=== PATIENT | female | born 1990 | race Caucasian/White ===

== ENCOUNTER → 2018-01-20 | Outpatient (CLI) | payer OTHER ==
--- NOTE | 2018-01-20 17:24 | US ---
EXAMINATION TYPE: US thyroid st tissue head/neck DATE OF EXAM: 01/20/2018 COMPARISON: NONE CLINICAL HISTORY: E04.1 Thyroid nodule. Pt states history of thyroid nodule GLAND SIZE: Right Lobe: 5.9 x 1.3 x 1.4 cm Overall Parenchyma: homogenous Left Lobe: 6.0 x 1.3 x 1.8 cm Overall Parenchyma: homogeneous Isthmus Thickness: 0.3 cm NODULES RIGHT: # of nodules measured on right: 1 1. 0.4 X 0.2 x 0.4 cm hypoechoic solid nodule at the mid pole with well-defined margins; This nodul e is wider than tall and shows intranodular vascularity. Prior size: No prior Multiple, (up to 4) sub-centimeter nodules with largest nodule measured LEFT: # of nodules measured on left: 1 1. 0.6 X 0.3 x 0.4 cm hypoechoic solid nodule at the mid pole with well-defined margins; This nodu le is wider than tall and shows intranodular vascularity. Prior size: No prior Bilateral neck scanned, no evidence of lymphadenopathy. Multiple sub-centimeter nodules bilaterally. IMPRESSION: Thyroid gland is fairly normal size. Small hypoechoic oval-shaped nodules bilaterally. No suspicious mass. no dominant mass.
== END ==
LOC: RADUSWWP 16:57
PROVIDERS: ATTEND Family Medicine
DX: E04.1 Nontoxic single thyroid nodule (principal)
CPT/HCPCS: 76536

== ENCOUNTER → 2019-02-02 | Outpatient (CLI) | payer SELFPAY ==
--- NOTE | 2019-02-02 16:21 | US ---
EXAMINATION TYPE: US thyroid st tissue head/neck DATE OF EXAM: 02/02/2019 COMPARISON: Thyroid ultrasound January 20, 2018. CLINICAL HISTORY: E04.2 MULTINODULAR GOITER. Follow up thyroid nodules GLAND SIZE: Right Lobe: 5.4 x 1.5 x 1.5 cm Overall Parenchyma: homogenous Left Lobe: 5.7 x 1.5 x 1.7 cm Overall Parenchyma: homogeneous Isthmus Thickness: 0.4 cm NODULES RIGHT: # of nodules measured on right: 1 1. 0.5 X 0.3 x 0.4 cm hypoechoic nodule at the mid pole with well-defined margins; . This nodule i s wider than tall and shows no intranodular vascularity. Prior size: 0.4 x 0.2 x 0.4 cm LEFT: # of nodules measured on left: 1 1. 0.6 X 0.4 x 0.5 cm mixed nodule at the mid pole with well-defined margins; . This nodule is wid er than tall and shows intranodular vascularity. Prior size: 0.6 x 0.3 x 0.4 cm ISTHMUS: # of nodules measured in the isthmus: 0 Bilateral neck scanned, no evidence of lymphadenopathy. Redemonstration of homogeneous slightly enlarged thyroid gland with scattered small nodules bilateral ly several containing colloid. IMPRESSION: As above. No new greater than 1 cm or enlarging thyroid nodules are identified.
== END | disposition home or self-care (01) ==
LOC: RADUSWWP 15:41
PROVIDERS: ATTEND Family Medicine
DX: E04.2 Nontoxic multinodular goiter (principal)
CPT/HCPCS: 76536

== ENCOUNTER 2021-01-22 13:25 | Outpatient (CLI) | payer OTHER ==
[~2021-01-22 13:25] MED LIST: SODIUM CHLORIDE 0.9% 50 ML IVPB ONE
[2021-01-22 14:19] VITALS: BP 115/62; PULSE 70; RESP 16; TEMP 98.3
[2021-01-22] MEDS ORDERED: SODIUM CHLORIDE 0.9% 500 ML 500 ML in EMPTY BAG 1 BAG IV PRN (14:37)
[2021-01-22] MEDS ORDERED: CASIRIVIMAB (REGN10933) (EUA) 600 MG, IMDEVIMAB (REGN10987) (EUA) 600 MG in SODIUM CHLO... IVPB ONE (23:00)
== END 2021-01-22 15:15 | disposition home or self-care (01) ==
LOC: PROCWHC3 13:25
PROVIDERS: ATTEND Family Medicine
DX: U07.1 COVID-19 (principal)
CPT/HCPCS: 96360; Q0243; M0243

== ENCOUNTER → 2023-04-22 | Outpatient (CLI) | payer OTHER ==
--- NOTE | 2023-04-22 22:12 | US ---
EXAMINATION TYPE: US thyroid st tissue head/neck DATE OF EXAM: 04/22/2023 COMPARISON: Most recent: 05/08/22 CLINICAL INDICATION: Female, 33 years old with history of E04.1 THYROID NODULE; Follow up on thyroid nodules GLAND SIZE: Right Lobe: 5.1 x 1.3 x 1.2 cm Overall Parenchyma: homogeneous Left Lobe: 6.0 x 1.6 x 1.4 cm Overall Parenchyma: homogeneous Isthmus Thickness: 0.3 cm NODULES RIGHT: # of nodules measured on right: 1 1. 0.5 X 0.4 x 0.3 cm, lower mid, TIRADS Score: 0 TIRADS Category 1: Benign Composition: Cystic or almost completely cystic (0 points). Recommendation: No FNA LEFT: # of nodules measured on left: 1 1. 0.6 X 0.5 x 0.4 cm, mid lateral, Prior size: 0.6 x 0.4 x 0.5 cm TIRADS Score: 0 TIRADS Category 1: Benign Composition: Cystic or almost completely cystic (0 points). Recommendation: No FNA ISTHMUS: # of nodules measured in the isthmus: 0 Bilateral neck scanned, no evidence of lymphadenopathy. Multiple small colloid cysts seen in left lobe of thyroid, largest measured. IMPRESSION: Bilateral thyroid colloid cysts. No suspicious thyroid nodules. No nodules that meet criteria for FNA .
== END | disposition home or self-care (01) ==
LOC: RADUSWWP 15:56
PROVIDERS: ATTEND Family Medicine
DX: E04.1 Nontoxic single thyroid nodule (principal)
CPT/HCPCS: 76536

== ENCOUNTER → 2024-07-06 | Outpatient (CLI) | payer OTHER ==
--- NOTE | 2024-07-06 21:04 | US ---
EXAMINATION TYPE: US thyroid st tissue head/neck DATE OF EXAM: 07/06/2024 COMPARISON: NONE CLINICAL INDICATION: Female, 34 years old with history of E04.9 NONTOXIC GOITER, UNSPECIFIED; f/u TECHNIQUE: Grayscale and color Doppler imaging of the thyroid gland. FINDINGS: GLAND SIZE: Right Lobe: 5.2 x 1.0 x 1.5 cm Overall Parenchyma: heterogeneous Left Lobe: 5.6 x 1.4 1.3 cm Overall Parenchyma: heterogeneous Isthmus Thickness: 0.3 cm NODULES RIGHT: # of nodules measured on right: 1 1. 0.4 X 0.4 x 0.3 cm, lower, mixed cystic and solid, nodule, which is wider than tall, with smooth margins, without echogenic foci. TR3 Prior size: 0.6 x 0.3 x 0.4 cm LEFT: # of nodules measured on left: multiple, measured largest 1. 0.7 X 0.4 x 0.4 cm, mid, mixed cystic and solid, anechoic nodule, which is wider than tall, with smooth margins, with echogenic foci. TR 1. Prior size: 0.6 x 0.5 x 0.6 cm ISTHMUS: # of nodules measured in the isthmus: 0 Bilateral neck scanned, no evidence of lymphadenopathy. IMPRESSION: 1. Mildly suspicious nodule inferior right lobe thyroid. This is smaller than comparison. Highest TI-RADS level nodule reported: 2017 ACR TI-RADS LEVEL: TI-RADS 3 - Mildly Suspicious: Follow if > 1.5 cm, FNA if > 2.5 cm TI-RADS assessment score and recommendation for follow-up based on appropriate scoring and treatment protocols. TR3: If nodule size is ? 2.5 cm, FNA is recommended. If nodule size is ? 1.5 cm, follow-up imaging at 1, 3, and 5 years is recommended. TR4: If nodule size is ? 1.5 cm, FNA is recommended. If nodule size is ? 1.0 cm, follow-up imaging at 1, 2, 3, and 5 years is recommended. TR5: If nodule size is ? 1.0 cm, FNA is recommended. If nodule size is ? 0.5 cm, annual follow-up for up to 5 years is recommended. [email or web address], , 07/06/2024 9:02 PM
== END | disposition home or self-care (01) ==
LOC: RADUSWWP 16:21
PROVIDERS: ATTEND Family Medicine
DX: E04.9 Nontoxic goiter, unspecified (principal)
CPT/HCPCS: 76536